=== PATIENT | female | born 1990 | race African-American/Black ===

== ENCOUNTER 2024-01-30 07:39 | Emergency (ER) | payer MEDICAID, OTHER ==
[~2024-01-30] VITALS: Ht 170.2 cm; Wt 118.2 kg
[2024-01-30] MEDS: ONDANSETRON HCL 4 MG/2 ML VIAL IV ONE (08:21)
[2024-01-30] MEDS: SODIUM CHLORIDE 0.9% 500 ML IVB ONE (08:21)
[2024-01-30] MEDS: MORPHINE SULFATE 4 MG/ML SYR/VIAL IV ONE (08:21)
[2024-01-30 08:49] LABS: Basophils # (auto) 0 10 ^3/uL (0-0.2); Basophils % (auto) 0.7 % (0.0-2.0); Eosinophils # (auto) 0.1 10 ^3/uL (0-0.8); Hematocrit 38.8 % (36.0-46.0); Hemoglobin 13.1 g/dL (12.2-16.2); Lymphocytes # (auto) 1.2 10 ^3/uL (0.4-5.4); Lymphocytes % (auto) 19.4 % (10.0-50.0); Mean Corpuscular Hemoglobin 29.5 pg (28.0-32.0); Mean Corpuscular Hgb Conc. 33.8 g/dL (32.0-36.0); Mean Corpuscular Volume 87.4 fL (80.0-100.0); Monocytes # (auto) 0.4 10 ^3/uL (0-1.3); Monocytes % (auto) 6.3 % (0.0-12.0); Neutrophils # (auto) 4.4 10 ^3/uL (1.6-8.6); Neutrophils % (auto) 72.6 % (37.0-80.0); Nucleated Red Blood Cells % 0.2 %; Platelet Count (auto) 220 10^3/uL (140-450); Red Blood Cells 4.44 10^6/uL (4.0-5.20); Red Cell Distribution Width 13.3 % (11.8-14.3)
[2024-01-30 08:56] LABS: Potassium 4.1 mmol/L (3.5-5.1); Sodium 143 mmol/L (136-145)
[2024-01-30 08:57] LABS: Anion Gap 9 (5-15); Calcium 9.5 mg/dL (8.7-10.4); Carbon Dioxide 23 mmol/L (20-31)
[2024-01-30 09:02] LABS: BUN/Creatinine Ratio 12.5 (10.0-20.0); Blood Urea Nitrogen 12 mg/dL (9-23); Lipase 32 U/L (12-53)
[2024-01-30 09:03] LABS: Chloride 111 mmol/L (98-107); Glucose 108 mg/dL (74-106); Magnesium 1.9 mg/dL (1.6-2.6)
[2024-01-30 09:07] LABS: Urine Bacteria None Seen /hpf (None Seen)
[2024-01-30 09:17] LABS: Urine Blood 3+ /uL (Negative); Urine Clarity Clear (Clear); Urine Color Light-Yellow (Yellow); Urine Protein, UAD Negative (Negative); Urine Specific Gravity 1.024 (1.001-1.035); Urine Urobilinogen Normal (Negative); Urine WBC 2 /hpf (0 - 5); Urine pH 6.5 (5.0-9.0)
--- NOTE | 2024-01-30 09:38 | ED.PDOC ---
History of Present Illness HPI Comments 33 y/o F, with a Hx of seizures, morbid obesity, , and marijuana use, presents with c/o non-radiating, left-lower pelvic pain and abnormal vaginal bleeding w/clot production, today. Patient endorses on having symptoms since the beginning of December 2023 following recent Depo-Provera control use cessation in the end of November 2023, due to adverse side-effects. She reports no additional relevant or pertinent Hx along with any recent stressors, strenuous activities, sick contact, travel, spoiled food, substance use/exposure, or sexual activities. Patient denies having any urinary symptoms, weakness, lightheadedness, nausea, vomiting, or other associated symptoms or modifiers at this time. 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 Family History Family History: Unknown Social History Smoker: Non-Smoker Alcohol: Denies ETOH Use Drugs: Marijuana Lives In: Home Genitourinary: reports: abnormal vagina bleeding, pain (left pelvic pain) All Other Systems: Reviewed and Negative (negative unless otherwise stated above or in HPI) Physical Exam General Appearance: Mild Distress, Moderate Distress HEENT: Normal ENT Inspection, PERRL/EOMI Neck: Full Range of Motion, Non-Tender, Normal, Normal Inspection Respiratory: Chest Non-Tender, Lungs Clear, No Accessory Muscle Use, No Respiratory Distress, Normal Breath Sounds Cardiovascular: No Edema, No JVD, No Murmur, No Gallop, Normal Peripheral Pulses, Regular Rate/Rhythm Breast Exam: Deferred Gastrointestinal: No Organomegaly, No Pulsatile Mass, Normal Bowel Sounds, Soft, Suprapubic, Tenderness Genitalia: Deferred Pelvic: Deferred, Vaginal Bleeding Rectal: Deferred Extremities: No calf tenderness, Normal capillary refill, Normal inspection, Normal range of motion, Non-tender, No pedal edema Neurologic: Alert, seed expert II-XII nml as Tested, No Motor Deficits, Normal Affect, Normal Mood, No Sensory Deficits Cerebellar Function: Normal Reflexes: Normal Skin: Dry, Normal Color, Warm Peripheral Pulses: 1+ carotid (R), 1+ carotid (L) Lymphatic: No Adenopathy Was a procedure done? Was a procedure done?: No Differential Dx Considerations may include: menstruation, menorrhagia, menometrorrhagia, dysmenorrhea, anemia, dehydration X-Ray, Labs, Meds, VS Vital Signs Date Time Temp Pulse Resp B/P (MAP) Pulse Ox O2 Delivery O2 Flow Rate FiO2 01/30/24 10:08 98.0 72 16 140/90 (107) 98 98.0 01/30/24 09:00 72 16 140/90 01/30/24 08:21 87 20 131/92 01/30/24 08:21 Room Air* 0 21 01/30/24 08:20 84 20 131/92 (105) 98 01/30/24 07:56 98.2 97 18 140/94 (109) 99 Lab Test 01/30/24 08:27 01/30/24 07:49 Range/Units White Blood Count 6.0 4.4-10.8 10^3/uL Red Blood Count 4.44 4.0-5.20 10^6/uL Hemoglobin 13.1 12.2-16.2 g/dL Hematocrit 38.8 36.0-46.0 % Mean Corpuscular Volume 87.4 80.0-100.0 fL Mean Corpuscular Hemoglobin 29.5 28.0-32.0 pg Mean Corpuscular Hemoglobin Concent 33.8 32.0-36.0 g/dL Red Cell Distribution Width 13.3 11.8-14.3 % Platelet Count 220 140-450 10^3/uL Mean Platelet Volume 7.7 6.9-10.8 fL Neutrophils (%) (Auto) 72.6 37.0-80.0 % Lymphocytes (%) (Auto) 19.4 10.0-50.0 % Monocytes (%) (Auto) 6.3 0.0-12.0 % Eosinophils (%) (Auto) 1.0 0.0-7.0 % Basophils (%) (Auto) 0.7 0.0-2.0 % Neutrophils # (Auto) 4.4 1.6-8.6 10 ^3/uL Lymphocytes # (Auto) 1.2 0.4-5.4 10 ^3/uL Monocytes # (Auto) 0.4 0-1.3 10 ^3/uL Eosinophils # (Auto) 0.1 0-0.8 10 ^3/uL Basophils # (Auto) 0 0-0.2 10 ^3/uL Nucleated Red Blood Cells 0.2 % Sodium Level 143 136-145 mmol/L Potassium Level 4.1 3.5-5.1 mmol/L Chloride Level 111 H 98-107 mmol/L Carbon Dioxide Level 23 20-31 mmol/L Anion Gap 9 5-15 Blood Urea Nitrogen 12 9-23 mg/dL Creatinine 0.96 0.550-1.02 mg/dL Glomerular Filtration Rate Calc 81 >90 mL/min BUN/Creatinine Ratio 12.5 10.0-20.0 Serum Glucose 108 H 74-106 mg/dL Calcium Level 9.5 8.7-10.4 mg/dL Magnesium Level 1.9 1.6-2.6 mg/dL Lipase 32 12-53 U/L Beta HCG, Quantitative 1.8 1.5-4.2 mIU/mL Urine Color Light-yellow Yellow Urine Clarity Clear Clear Urine pH 6.5 5.0-9.0 Urine Specific [place] 1.024 1.001-1.035 Urine Protein Negative Negative Urine Ketones Negative Negative Urine Blood 3+ H Negative /uL Urine Nitrite Negative Negative Urine Bilirubin Negative Negative Urine Urobilinogen Normal Negative mg/dL Urine Leukocyte Esterase Negative Negative /uL Urine RBC 438 0 - 4 /hpf Urine WBC 2 0 - 5 /hpf Urine Squamous Epithelial Cells Few <5 /hpf Urine Bacteria None seen None Seen /hpf Urine Glucose Normal Normal mg/dL Current Medications Medications (Trade) Dose Ordered Sig/Sherrill Route Start Time Stop Time Status Last Admin Morphine Sulfate 2 mg ONCE ONCE IV 01/30/24 08:15 01/30/24 08:16 DC 01/30/24 08:21 Sodium Chloride 500 ml @ 500 mls/hr Q1H ONCE IVB 01/30/24 08:15 01/30/24 09:14 DC 01/30/24 08:21 Ondansetron HCl (Zofran) 4 mg ONCE ONCE IV 01/30/24 08:15 01/30/24 08:16 DC 01/30/24 08:21 X-Ray, Labs, Meds, VS Comment Course in the emergency department eventful patient came in complaining of low abdominal pain vaginal bleeding since she has stopped the Depo-Provera Ultrasound will pelvis is normal CBC negative Urine shows 3+ blood Lipase 32 Magnesium 1.9 CMP negative Patient will be discharged home to follow up with unemployment insurance director Treatment with Provera 10 mg a one time before seeing unemployment insurance director Time of 1ST Reevaluation: 09:05 Reevaluation 1ST: Unchanged Patient Education/Counseling: Diagnosis, Treatment, Prognosis Family Education/Counseling: Diagnosis, Treatment, Prognosis, No Family Present Additional Information - The following tests were ordered, and results were reviewed by me: BMP, Mg2+, Pelvic US, urine analysis, lipase, Beta-Quant, CBC - I reviewed and agreed with the following test results read by other provider: Pelvic US Departure 1 Departure Time of Disposition: 11:48 Impression: Primary Impression: Abnormal uterine bleeding Additional Impression: Breakthrough bleeding on depo provera Ruled Out: Anemia, Disposition: 01 HOME / SELF CARE / HOMELESS Condition: Fair Additional Instructions: You need to push fluids and follow up with your unemployment insurance director If the bleeding continued few days need to come back for further care Discharged With: Self Critical Care Note Critical Care Time?: No Stability Stability form required: No Heart Score Heart Score: Heart Score Response (Comments) Value History N/A 0 EKG N/A 0 Age <45 0 Risk Factors No known risk factors 0 Troponin N/A 0 Total 0 I personally scribed for RAJAN CAMPOS MD ([email or web address]) on 01/30/24 at 09:38. Electronically submitted by Byron Spence ([email or web address]). RAJAN CAMPOS MD Jan 30, 2024 09:38
--- NOTE | 2024-01-30 10:22 | DVH ---
INDICATION: Heavy vaginal bleeding and cramping TECHNIQUE: Multiple real-time grayscale transabdominal and transvaginal sonographic images along with color and duplex Doppler of the uterus and ovaries were obtained. COMPARISON: None FINDINGS: The uterus measures 9.2 x 4.5 x 4.1 cm. The endometrial stripe measures 0.5 cm. There is a nabothian cysts in the cervix measuring 0.7 cm. The right ovary measures 2.5 x 2.0 x 1.9 cm. The left ovary is obscured due to overlying bowel gas. Subsequent color and duplex Doppler interrogation of the ovaries demonstrated symmetric vascular flow to both ovaries, though this does not exclude the possibility of torsion due to the dual blood suppl y. IMPRESSION: 1. Grossly unremarkable pelvic ultrasound.
[2024-01-30 12:01] VITALS: BP 141/87; PULSE 72; RESP 16; TEMP 98.7; O2SAT 97
[2024-01-30] MEDS: medroxyPROGESTERone ACETATE 5 MG TAB PO ONE (12:06)
[2024-01-30] MEDS ORDERED: MEDR5TAB28 PO (12:12)
== END 2024-01-30 12:19 | disposition home or self-care (01) ==
LOC: ER 07:39
DX: N93.9 Abnormal uterine and vaginal bleeding, unspecified (principal); R10.2 Pelvic and perineal pain; F12.10 Cannabis abuse, uncomplicated; E66.01 Morbid (severe) obesity due to excess calories; Z79.3 Long term (current) use of hormonal contraceptives; Z88.2 Allergy status to sulfonamides; Z68.41 Body mass index [BMI] 40.0-44.9, adult; Z79.899 Other long term (current) drug therapy
CPT/HCPCS: 36415; 76856; 80048; 81001; 83690; 83735; 84702; 85025; 96361; 96374; 96375; 99285; J2270; J2405; J7040; 76817

== ENCOUNTER 2024-05-12 12:48 | Emergency (ER) | payer MEDICAID ==
[~2024-05-12] VITALS: Ht 167.6 cm; Wt 116.7 kg
[~2024-05-12 12:48] MED LIST: MEDR5TAB28 PO
[2024-05-12 13:38] VITALS: BP 123/92; PULSE 94; RESP 16; TEMP 98; O2SAT 97
[2024-05-12 14:54] LABS: Urine Bacteria None Seen /hpf (None Seen)
[2024-05-12 15:14] LABS: Urine Blood Negative /uL (Negative); Urine Clarity Clear (Clear); Urine Color Light-Yellow (Yellow); Urine Mucus FEW (None Seen); Urine Protein, UAD Negative (Negative); Urine Specific Gravity 1.026 (1.001-1.035); Urine Squamous Epithelial Cell FEW /hpf (<5); Urine Urobilinogen Normal (Negative); Urine WBC < 1 /HPF (0-5)
== END 2024-05-12 15:33 | disposition left against medical advice (07) ==
LOC: ER 12:48
DX: R68.89 Other general symptoms and signs (principal); Z53.21 Procedure and treatment not carried out due to patient leaving prior to being seen by health care provider
CPT/HCPCS: 81001

== ENCOUNTER 2024-09-27 20:10 | Inpatient (IN) | payer MEDICAID ==
[~2024-09-27] VITALS: Ht 167.6 cm; Wt 121.9 kg
[2024-09-27] MEDS ORDERED: LORazepam 2MG/ML-1ML VIAL ONE (20:12)
[2024-09-27] MEDS ORDERED: levETIRAcetam 1000 mg/100ml 100 ML IV ONE (20:16)
[2024-09-27] MEDS: LORazepam 2MG/ML-1ML VIAL IV ONE (20:20)
[2024-09-27] MEDS: levETIRAcetam 1000 mg/100ml 100 ML IV ONE (20:42)
[2024-09-27] MEDS: SODIUM CHLORIDE 0.9% 1,000 ML IV ONE (20:42)
[2024-09-27 20:44] LABS: Hematocrit 36.9 % (36.0-46.0); Hemoglobin 12.3 g/dL (12.2-16.2); Mean Corpuscular Hemoglobin 28.9 pg (28.0-32.0); Mean Corpuscular Volume 86.8 fL (80.0-100.0); Nucleated Red Blood Cells % 0.1 %
[2024-09-27 20:45] VITALS: PULSE 84; RESP 17; O2SAT 99
--- NOTE | 2024-09-27 21:01 | ED.PDOC ---
HPI (NEURO) HPI Comments 34-year-old female who came to ER for seizures. Patient brought to ER by family member, who had a witnessed seizure. Upon arrival of the ER, patient had another seizure episode with nausea and vomiting. Patient currently postictal at this time care. REVIEW OF SYSTEMS: No fever, no chills, or fatigue HEENT: No sore throat, no earache, no congestion, no neck pain. Cardiac: No chest pain. No palpitations. Lungs: No shortness of breath, no cough. GI: No nausea, no vomiting, no diarrhea, no constipation, no abdominal pain : No dysuria, frequency, or urgency. No hematuria. Musculoskeletal: No joint pain , no joint swelling, no extremity edema. Skin: No rash, no itching. Neuro: No headache, no dizziness, no weakness, (+) seizure Physical exam General: Awake, alert and oriented. No acute distress. Skin: Skin in warm, dry and intact. Appropriate color for ethnicity. Nailbeds pink with no cyanosis. HEENT: The head is normocephalic and atraumatic. Conjunctivae are clear without exudates or hemorrhage. Sclera is non-icteric. EOM are intact. No signs of nystagmus. Eyelids are normal in appearance without swelling or lesions. Oral mucosa is pink and moist Neck: The neck is supple with normal range of motion. No JVD. Cardiac: Heart rate and rhythm are normal. No murmurs, gallops, or rubs are auscultated. Respiratory: No signs of respiratory distress. Lung sounds are clear in all lobes bilaterally without rales, rhonchi, or wheezes. Abdominal: Abdomen is soft, non-tender without distention. Bowel sounds are present and normoactive in all four quadrants. Extremities: Upper and lower extremities are atraumatic in appearance without deformity or edema. Neurological: The patient is awake, alert and oriented to person, place, and time with normal speech. Speech is clear. There is no facial asymmetry. Active seizure witnessed patient with generalized tonic-clonic seizure-like activity. Psychiatric: Appropriate mood and affect. Good judgement and insight. No visual or auditory hallucinations. Chief Complaint: Seizure Time Seen by MD: 20:59 Primary Care Provider: [facility] Reviewed Notes: Nurses Notes Information Source: Patient, Relative Mode of Arrival: Wheelchair Severity: Moderate Dizziness/Weakness Severity: Unable to do activities Headache Severity: Moderate Timing: Minutes Duration: Minutes Seizure Quality: Tonic-clonic Headache Quality: Throbbing, Aching Headache Location: Generalized Weakness Location: Generalized Numbness Location: Generalized Seizure Location: Generalized Onset: With light exertion Circumstances: Spontaneous Before: Normal During: LOC After: Confusion, Headache History of: Seizure Disorder Past Medical History PAST MEDICAL HISTORY: Seizures 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 Was a procedure done?: No Differential Diagnosis (SZ) Seizure: Psychogenic Seizure, Hypoglycemia, Idiopathic, Mass Lesion, Epilepsy-Break Through, Epilepsy-Status, Other X-Ray, Labs, Meds, VS Vital Signs Date Time Temp Pulse Resp B/P (MAP) Pulse Ox O2 Delivery O2 Flow Rate FiO2 09/27/24 23:00 84 18 128/68 (88) 98 09/27/24 22:00 84 17 124/75 (91) 98 09/27/24 21:00 80 16 128/78 (95) 97 09/27/24 20:45 84 17 99 Room Air* 0 21 09/27/24 20:34 97.1 107 16 133/100 98 97.1 09/27/24 20:11 98.1 83 17 124/76 (92) 97 98.1 Lab Test 09/27/24 20:32 09/27/24 20:31 Range/Units POC Glucose 106 70-106 mg/dl White Blood Count 7.2 4.4-10.8 10^3/uL Red Blood Count 4.25 4.0-5.20 10^6/uL Hemoglobin 12.3 12.2-16.2 g/dL Hematocrit 36.9 36.0-46.0 % Mean Corpuscular Volume 86.8 80.0-100.0 fL Mean Corpuscular Hemoglobin 28.9 28.0-32.0 pg Mean Corpuscular Hemoglobin Concent 33.3 32.0-36.0 g/dL Red Cell Distribution Width 13.0 11.8-14.3 % Platelet Count 219 140-450 10^3/uL Mean Platelet Volume 7.8 6.9-10.8 fL Neutrophils (%) (Auto) 67.7 37.0-80.0 % Lymphocytes (%) (Auto) 25.4 10.0-50.0 % Monocytes (%) (Auto) 5.5 0.0-12.0 % Eosinophils (%) (Auto) 0.8 0.0-7.0 % Basophils (%) (Auto) 0.6 0.0-2.0 % Neutrophils # (Auto) 4.9 1.6-8.6 10 ^3/uL Lymphocytes # (Auto) 1.8 0.4-5.4 10 ^3/uL Monocytes # (Auto) 0.4 0-1.3 10 ^3/uL Eosinophils # (Auto) 0.1 0-0.8 10 ^3/uL Basophils # (Auto) 0 0-0.2 10 ^3/uL Nucleated Red Blood Cells 0.1 % Prothrombin Time 10.3 9.3-11.8 sec Prothrombin Time INR 0.97 0.9-1.15 Sodium Level 142 136-145 mmol/L Potassium Level 3.8 3.5-5.1 mmol/L Chloride Level 108 H 98-107 mmol/L Carbon Dioxide Level 26 20-31 mmol/L Anion Gap 8 5-15 Blood Urea Nitrogen 13 9-23 mg/dL Creatinine 1.08 H 0.550-1.02 mg/dL Glomerular Filtration Rate Calc 70 >90 mL/min BUN/Creatinine Ratio 12.0 10.0-20.0 Serum Glucose 91 74-106 mg/dL Calcium Level 8.8 8.7-10.4 mg/dL Magnesium Level 1.8 1.6-2.6 mg/dL Total Bilirubin 0.3 0.2-1.0 mg/dL Aspartate Amino Transferase (AST) 15 13-40 U/L Alanine Aminotransferase (ALT) 11 7-40 U/L Alkaline Phosphatase 75 46-116 U/L Total Protein 6.4 5.7-8.2 g/dL Albumin 4.0 3.2-4.8 g/dL Thyroid Stimulating Hormone (TSH) 1.24 0.55-4.78 uIU/mL Beta HCG, Quantitative 0.6 L 1.5-4.2 mIU/mL Levetiracetam Level Pending Plasma/Serum Blood Alcohol < 3.0 <10 mg/dL Time of 1ST Reevaluation: 20:57 Reevaluation 1ST: Unchanged Patient Education/Counseling: Need For Follow Up Family Education/Counseling: Need For Follow Up Departure 1 Departure Time of Disposition: 00:35 Impression: Primary Impression: Uncontrolled seizures Disposition: ADMITTED INPATIENT Condition: Fair Comments MDM: 34-year-old female presents to the emergency department with seizure activity. Initial evaluation included thorough history, physical examination and appropriate diagnostic testing. Based on the clinical presentation and diagnostic findings, the patient appears to have uncontrolled seizure disorder Patient was treated with IV fluids, Keppra and Ativan in the ED. she was placed on seizure precautions. Given the complexity of the case and need for further management patient is being admitted to the hospitalist service for further monitoring, treatment and evaluation. Risks, benefits and alternatives of admission and proposed interventions were discussed with the patient. Patient is in agreement with the plan. Extensive evaluation was performed in attempt to identify or rule out: (See differential diagnosis section) The following tests were ordered, and results were reviewed by me and discussed with patient: (See diagnostic results section) The following test were independently interpreted by me: N/A I reviewed and agreed with the following test results read by other providers: N/A I reviewed the following notes from the pt's past medical encounters: N/A Additional information was gathered from interviewing the following independent historians: EMS personnel, patient's at bedside Discussion of management or test interpretation with external physician/other qualified health healthcare administrator: Addressed an acute or chronic illness that poses a threat to life or bodily function: Uncontrolled seizure disorder Decision regarding hospitalization or escalation of hospital level of care: Risk and benefits of admission for further treatment of patient's condition was considered. Due to patient's current clinical condition, high risk of decline and poor outcome if discharged and need for further inpatient management and monitoring, patient will be admitted to the hospital. Discussed with patient. Drug therapy requiring intensive monitoring for toxicity: IV Keppra Parenteral controlled substances: IV lorazepam Decision regarding elective major surgery with identified patient or procedure risk factors: N/A Decision regarding emergency major surgery: N/A Decision not to resuscitate or to de-escalate care because of poor prognosis: N/A Diagnosis or treatment significantly limited by social determinants of health: N/A Critical Care Note Critical Care Time?: No Stability Stability form required: No Heart Score Heart Score: Heart Score Response (Comments) Value History N/A 0 EKG N/A 0 Age N/A 0 Risk Factors N/A 0 Troponin N/A 0 Total 0 I personally scribed for LINDSEY KELLEY MD ([email or web address]) on 09/27/24 at 21:00. Electronically submitted by Thomas Knight ([facility]). LINDSEY KELLEY MD Sep 27, 2024 21:00
[2024-09-27 21:06] LABS: Alanine Aminotransferase 11 U/L (7-40); Albumin 4.0 g/dL (3.2-4.8); Alkaline Phosphatase 75 U/L (46-116); Anion Gap 8 (5-15); BUN/Creatinine Ratio 12.0 (10.0-20.0); Blood Urea Nitrogen 13 mg/dL (9-23); Calcium 8.8 mg/dL (8.7-10.4); Carbon Dioxide 26 mmol/L (20-31); Glucose 91 mg/dL (74-106); Potassium 3.8 mmol/L (3.5-5.1); Sodium 142 mmol/L (136-145); Total Protein 6.4 g/dL (5.7-8.2)
[2024-09-27 21:07] LABS: Bilirubin, Total 0.3 mg/dL (0.2-1.0); Chloride 108 mmol/L (98-107)
--- NOTE | 2024-09-28 00:09 | DVHHPRES ---
History of Present Illness Resident Creating Document: LAURO CHOI RESDIENT History of Present Illness This is a 34-year-old female with past medical history of seizure, came to the hospital due to loss of consciousness. Per patient, she has seizure since childhood, previously was using levetiracetam, since 1 year has been on Lacosamide, but since 1 month has run out of medicine and had not been able to follow up with neurologist/refill medicine. Today, patient was feeling sick, had shortness of breaths, nausea and upon standing up lost consciousness. Upon hospital arrival, while she was coming out of car, lost consciousness and the next thing she remember is that she was lying on the bed. Per ER note the last episode was a witness seizure. She also reports of blurry vision, headache and loss of urine. She denies chest pain, fever, any recent bladder/bowel habit changes, or tongue biting. She reports that recently has been under high stress and could not sleep properly. PMHx: Seizure since childhood, previous seizure episode was 2 months back PSHx: Ectopic Family history: Has family history of seizure Social history: Smokes marijuana, denies any other drug use Home medication: Lacosamide 100 mg daily, but has ran out of medicine since 1 month Allergic history: Sulfa antibiotics Patient seen and examined at the bedside. Patient is currently alert oriented. Complained of bilateral lower limb pain. Review of Systems Allergies: Coded Allergies: Sulfa Antibiotics (Verified Allergy, Unknown, 01/30/24) Medications Current Medications Medications Dose Ordered Sig/Sherrill Route Start Time Stop Time Status Last Admin Dose Admin Levetiracetam 1,000 mg DAILY PO 09/29/24 18:00 UNV Lorazepam 1 mg Q5MINP PRN IV 09/28/24 00:15 UNV Exam Vital Signs Vital Signs Date Time Temp Pulse Resp B/P (MAP) Pulse Ox O2 Delivery O2 Flow Rate FiO2 09/27/24 23:00 84 18 128/68 (88) 98 09/27/24 20:45 Room Air* 0 21 09/27/24 20:34 97.1 97.1 Exam General Appearance: Alert, Oriented X3, Cooperative, No acute distress HEENT: Atraumatic, PERRLA, EOMI, Mucous membrane moist/pink Respiratory: Clear to auscultation, Normal air movement Cardiovascular: Regular rate, Normal S1, Normal S2, No murmurs, no chest wall tenderness Abdominal: Normal bowel sounds, Soft, No tenderness, No hepatospenomegaly, No masses Extremities: No clubbing, No cyanosis, No edema, Normal pulses, No tenderness/swelling Skin: No rashes, No breakdown, No significant lesion Neuro: Normal gait, Normal speech, Strength at 5/5 X4 ext, Normal tone, Sensation intact, Cranial nerves 3-12 NL, Reflexes 2+ Psych/Mental Status: Mental status NL, Mood was sad and patient was crying during history taking Labs/Xrays Labs Test 09/27/24 20:32 09/27/24 20:31 Range/Units POC Glucose 106 70-106 mg/dl White Blood Count 7.2 4.4-10.8 10^3/uL Red Blood Count 4.25 4.0-5.20 10^6/uL Hemoglobin 12.3 12.2-16.2 g/dL Hematocrit 36.9 36.0-46.0 % Mean Corpuscular Volume 86.8 80.0-100.0 fL Mean Corpuscular Hemoglobin 28.9 28.0-32.0 pg Mean Corpuscular Hemoglobin Concent 33.3 32.0-36.0 g/dL Red Cell Distribution Width 13.0 11.8-14.3 % Platelet Count 219 140-450 10^3/uL Mean Platelet Volume 7.8 6.9-10.8 fL Neutrophils (%) (Auto) 67.7 37.0-80.0 % Lymphocytes (%) (Auto) 25.4 10.0-50.0 % Monocytes (%) (Auto) 5.5 0.0-12.0 % Eosinophils (%) (Auto) 0.8 0.0-7.0 % Basophils (%) (Auto) 0.6 0.0-2.0 % Neutrophils # (Auto) 4.9 1.6-8.6 10 ^3/uL Lymphocytes # (Auto) 1.8 0.4-5.4 10 ^3/uL Monocytes # (Auto) 0.4 0-1.3 10 ^3/uL Eosinophils # (Auto) 0.1 0-0.8 10 ^3/uL Basophils # (Auto) 0 0-0.2 10 ^3/uL Nucleated Red Blood Cells 0.1 % Sodium Level 142 136-145 mmol/L Potassium Level 3.8 3.5-5.1 mmol/L Chloride Level 108 H 98-107 mmol/L Carbon Dioxide Level 26 20-31 mmol/L Anion Gap 8 5-15 Blood Urea Nitrogen 13 9-23 mg/dL Creatinine 1.08 H 0.550-1.02 mg/dL Glomerular Filtration Rate Calc 70 >90 mL/min BUN/Creatinine Ratio 12.0 10.0-20.0 Serum Glucose 91 74-106 mg/dL Calcium Level 8.8 8.7-10.4 mg/dL Total Bilirubin 0.3 0.2-1.0 mg/dL Aspartate Amino Transferase (AST) 15 13-40 U/L Alanine Aminotransferase (ALT) 11 7-40 U/L Alkaline Phosphatase 75 46-116 U/L Total Protein 6.4 5.7-8.2 g/dL Albumin 4.0 3.2-4.8 g/dL SEPSIS Sepsis Screen Date sepsis recognized/suspect: Sep 27, 2024 Time Sepsis recognized/suspect: 2217 Recent Procedure: No On Antibiotic Therapy: No Respiratory Rate >20: No Heart Rate >90: No Temp<36 C (96.8 F) or >38.3 C: No SBP <90 or MAP <65 mmHG: No New Acute Mental Status Change: No Is the patient on CPAP, BIPAP,: No Physician Orders Drug Screen (09/27/24 20:18) Urinalysis (09/27/24 20:18) Levetiracetam (Keppra) (09/27/24 20:18) Seizure Precautions (09/27/24 ) Titrate Oxygen (09/27/24 20:18) Oxygen (09/27/24 ) Continous Pulse Oximetry (09/27/24 20:18) Saline Lock (09/27/24 20:18) Longshore Equipment Operator (09/27/24 ) Admit (09/27/24 23:52) Code Status (09/27/24 23:52) Vital Signs .PER UNIT PROTOCOL (09/27/24 23:52) Review Orders With Adm.Md (09/27/24 23:52) Notify Md Of Changes From Base (09/27/24 23:52) Advance Directive (09/27/24 23:52) Patient Condition (09/27/24 23:52) Allergies (09/27/24 23:52) Stat Ekg For Chest Pain (09/27/24 23:52) Notify Md Of Changes From Base (09/27/24 23:52) Willow Machine Operator For 24 Hours (09/27/24 23:52) Emergency Dysrhythmia Protocol (09/27/24 23:52) Rhythm Strips Once Every Shift (09/27/24 23:52) Thyroid Stimulating Hormone (09/27/24 23:52) Magnesium (09/27/24 23:52) Complete Blood Count (09/28/24 04:00) Comprehensive Metabolic Panel (09/28/24 04:00) * Neurology Consult (09/27/24 23:59) Chest Xray 1 View (09/27/24 23:59) Blood Alcohol (09/27/24 23:59) Electrocardigram (09/27/24 23:59) Beta Hcg, Quantitative (09/27/24 23:59) Levetiracetam Tablet (Keppra Tablet) (09/29/24 18:00) Lorazepam 2mg/Ml Inj (Ativan Inj) (09/28/24 00:15) Seizure Precautions (09/28/24 ) Fall Risk Precautions In Place QSHIFT (09/28/24 00:04) Prothrombin Time W/ Inr (09/28/24 00:07) Communication Order (09/28/24 00:07) Urinalysis (09/28/24 00:07) Vital Signs Date Time Temp Pulse Resp B/P (MAP) Pulse Ox O2 Delivery O2 Flow Rate FiO2 09/27/24 23:00 84 18 128/68 (88) 98 09/27/24 22:00 84 17 124/75 (91) 98 09/27/24 21:00 80 16 128/78 (95) 97 09/27/24 20:45 84 17 99 Room Air* 0 21 09/27/24 20:34 97.1 107 16 133/100 98 97.1 09/27/24 20:11 98.1 83 17 124/76 (92) 97 98.1 Laboratory Tests Test 09/27/24 20:31 White Blood Count 7.2 10^3/uL (4.4-10.8) Medications Medications Dose Ordered Sig/Sherrill Route Start Time Stop Time Status Last Admin Dose Admin Levetiracetam 100 ml @ 400 mls/hr ONCE ONCE IV 09/27/24 20:30 09/27/24 20:44 DC 09/27/24 20:42 400 MLS/HR Lorazepam 1 mg ONCE ONCE IV 09/27/24 20:15 09/27/24 20:53 DC 09/27/24 20:20 1 MG Sodium Chloride 1,000 ml @ 1,000 mls/hr Q1H ONCE IV 09/27/24 20:30 09/27/24 21:29 DC 09/27/24 20:42 1,000 MLS/HR Assessment/Plan Assessment/Plan Breakthrough seizure, likely due to medication nonadherence Medication nonadherence Obesity Current marijuana user Plan/recommendation * Levetiracetam * Ativan p.r.n. * Zofran * Pain management * Check head CT scan * Consulted neurology DIET: Regular DVT PROPHYLAXIS: Lovenox CODE STATUS: Goal of care discussed for more than 18 minutes, full code DISPOSITION: Telemetry Patient's status and plan discussed with the patient. Case discussed with Dr. Kimbrough. Plan discussed with: Patient, Other (Boyfriend and RN) My Orders Orders - LAURO CHOI RESDITONIA Procedure Category Date Status Time Admit ADMIT 09/27/24 Transmitted 23:52 Code Status CODE 09/27/24 Transmitted 23:52 Vital Signs [facility] 09/27/24 In Process 23:52 Review Orders With [facility] 09/27/24 In Process Adm. 23:52 Notify Of Changes [facility] 09/27/24 In Process From Base 23:52 Advance Directive [facility] 09/27/24 In Process 23:52 Patient Condition ORDERS 09/27/24 Transmitted 23:52 Allergies [facility] 09/27/24 In Process 23:52 Stat Ekg For Chest [facility] 09/27/24 In Process Pain 23:52 Notify Of Changes [facility] 09/27/24 In Process From Base 23:52 Willow Machine Operator For [facility] 09/27/24 In Process 24 Hours 23:52 Emergency Dysrhythmia [facility] 09/27/24 In Process Protocol 23:52 Rhythm Strips Once [facility] 09/27/24 In Process Every Shift 23:52 Thyroid Stimulating LAB 09/27/24 In Process Hormone 23:52 Magnesium LAB 09/27/24 In Process 23:52 Complete Blood Count LAB 09/28/24 Logged 04:00 Comprehensive LAB 09/28/24 Logged Metabolic Panel 04:00 * Neurology Consult CONS 09/27/24 Transmitted 23:59 Chest Xray 1 View XY 09/27/24 Logged 23:59 Blood Alcohol LAB 09/27/24 In Process 23:59 Electrocardigram EKG 09/27/24 Logged 23:59 Beta Hcg, Quantitative LAB 09/27/24 In Process 23:59 Levetiracetam Tablet PHA 09/29/24 Logged (Keppra Tablet) 18:00 Lorazepam 2mg/Ml Inj PHA 09/28/24 Logged (Ativan Inj) 00:15 Seizure Precautions ED NURSING 09/28/24 Transmitted Fall Risk Precautions [facility] 09/28/[address] 00:04 Prothrombin Time W/ LAB 09/28/24 Logged INR 00:07 Communication Order ORDERS 09/28/24 Verified 00:07 Urinalysis LAB 09/28/24 Verified 00:07 Date of Service: Sep 27, 2024 Billing Provider: KVNG KIMBROUGH MD Common Visit Codes: [id number] INP/OBS CARE (HIGH) LAURO CHOI RESDIENT Sep 28, 2024 00:09 KVNG KIMBROUGH MD Sep 30, 2024 07:52
[2024-09-28] MEDS ORDERED: ONDANSETRON HCL 4 MG/2 ML VIAL IV PRN (00:15)
[2024-09-28] MEDS ORDERED: LORazepam 2MG/ML-1ML VIAL IV PRN (00:15)
[2024-09-28 00:29] LABS: INR 0.97 (0.9-1.15); Prothrombin Time 10.3 sec (9.3-11.8)
[2024-09-28] MEDS: MAGNESIUM SULFATE 1GM/100ML 100 ML IV ONE (01:15)
--- NOTE | 2024-09-28 01:20 | DVH ---
CHEST RADIOGRAPH Indication: Pneumonia Technique: Single frontal view of the chest was obtained COMPARISON: None FINDINGS: Lines and Tubes: None Lungs: Clear Pleura: No effusion. No pneumothorax. Cardiomediastinal contours: Unremarkable Bones: Unremarkable IMPRESSION: 1. No acute disease.
[2024-09-28 01:25] LABS: Urine Protein, UAD Negative (Negative)
[2024-09-28 01:36] LABS: Cannabinoid Screen, Urine Pos (NEGATIVE)
[2024-09-28 02:02] LABS: Amphetamine Screen, Urine Neg (NEGATIVE); Barbiturate Scree,Urine Neg (NEGATIVE); Benzodiazephine Screen, Urine Neg (NEGATIVE); Cocaine Screen, Urine Neg (NEGATIVE); Opiate Scree,Urine Neg (NEGATIVE); Phencyclidine Screen, Urine Neg (NEGATIVE)
[2024-09-28 02:16] LABS: Hematocrit 34.3 % (36.0-46.0); Hemoglobin 11.6 g/dL (12.2-16.2); Mean Corpuscular Hemoglobin 29.3 pg (28.0-32.0); Mean Corpuscular Volume 86.8 fL (80.0-100.0); Nucleated Red Blood Cells % 0.1 %
--- NOTE | 2024-09-28 02:21 | DVH ---
EXAM: CT HEAD WITHOUT CONTRAST INDICATION: ALOC TECHNIQUE: CT of the head without intravenous contrast. Radiation Dose : 1. Head: CT Dose: CTDI volume is 62.14 mGy. Dose-length product is 1224.51 mGy*cm The dose indicators for CT are the volume Computed Tomography (CT) Dose Index (CTDIvol) and the Dose Length Product (DLP), and are measured in units of mGy and mGy-cm, respectively. These indicators are not patient dose, but values generated from the CT scanner acquisition factors. The report includes radiation exposure data for exposures received during this examination. COMPARISON: None FINDINGS: There is no evidence of acute intracranial hemorrhage, extra-axial collection, mass effect, midline s hift, herniation or hydrocephalus. The ventricles, sulci and cisterns are age appropriate. The stern-white differentiation is intact. The visualized paranasal sinuses and mastoid air cells are clear. The surrounding soft tissues and osseous structures are unremarkable. IMPRESSION: 1. No acute intracranial abnormality. Radiation optimization: All CT scans at this facility use at least one of these dose optimization mary hniques: automated exposure control mA and/or kV adjustment per patient size (includes targeted exam s where dose is matched to clinical indication) or iterative reconstruction.
[2024-09-28 02:34] LABS: Alanine Aminotransferase 10 U/L (7-40); Albumin 3.6 g/dL (3.2-4.8); Alkaline Phosphatase 67 U/L (46-116); Anion Gap 7 (5-15); BUN/Creatinine Ratio 14.0 (10.0-20.0); Blood Urea Nitrogen 13 mg/dL (9-23); Calcium 8.4 mg/dL (8.7-10.4); Carbon Dioxide 25 mmol/L (20-31); Chloride 110 mmol/L (98-107); Glucose 109 mg/dL (74-106); Potassium 3.7 mmol/L (3.5-5.1); Sodium 142 mmol/L (136-145); Total Protein 5.8 g/dL (5.7-8.2)
[2024-09-28 02:35] LABS: Bilirubin, Total 0.2 mg/dL (0.2-1.0)
[2024-09-28] MEDS: ACETAMINOPHEN 325 MG TAB PO SCH (06:00)
[2024-09-28 08:36] VITALS: PULSE 71; RESP 21; O2SAT 99
[2024-09-28] MEDS: KETOROLAC TROMETH 30 MG/ML 1ML VIAL IV PRN (09:07)
[2024-09-28] MEDS: levETIRAcetam 500 MG TAB PO SCH (10:14)
[2024-09-28] MEDS ORDERED: [UNRECOGNIZED DRUG - CODE] PO (17:33)
--- NOTE | 2024-09-28 17:55 | DVHDSRES ---
Discharge Summary Date of Admission Resident Creating Document: LAURO CHOI RESDIENT Sep 27, 2024 at 23:52 Date of Discharge: Sep 28, 2024 Admitting Diagnosis Seizure disorder Labs/Diagnostic Data: Laboratory Results Test 09/28/24 11:11 09/28/24 02:08 09/28/24 01:18 09/28/24 01:17 POC Glucose 111 mg/dl (70-106) White Blood Count 6.3 10^3/uL (4.4-10.8) Red Blood Count 3.96 10^6/uL (4.0-5.20) Hemoglobin 11.6 g/dL (12.2-16.2) Hematocrit 34.3 % (36.0-46.0) Mean Corpuscular Volume 86.8 fL (80.0-100.0) Mean Corpuscular Hemoglobin 29.3 pg (28.0-32.0) Mean Corpuscular Hemoglobin Concent 33.8 g/dL (32.0-36.0) Red Cell Distribution Width 13.0 % (11.8-14.3) Platelet Count 198 10^3/uL (140-450) Mean Platelet Volume 7.5 fL (6.9-10.8) Neutrophils (%) (Auto) 68.0 % (37.0-80.0) Lymphocytes (%) (Auto) 25.0 % (10.0-50.0) Monocytes (%) (Auto) 5.7 % (0.0-12.0) Eosinophils (%) (Auto) 0.9 % (0.0-7.0) Basophils (%) (Auto) 0.4 % (0.0-2.0) Neutrophils # (Auto) 4.3 10 ^3/uL (1.6-8.6) Lymphocytes # (Auto) 1.6 10 ^3/uL (0.4-5.4) Monocytes # (Auto) 0.4 10 ^3/uL (0-1.3) Eosinophils # (Auto) 0.1 10 ^3/uL (0-0.8) Basophils # (Auto) 0 10 ^3/uL (0-0.2) Nucleated Red Blood Cells 0.1 % Sodium Level 142 mmol/L (136-145) Potassium Level 3.7 mmol/L (3.5-5.1) Chloride Level 110 mmol/L (98-107) Carbon Dioxide Level 25 mmol/L (20-31) Anion Gap 7 (5-15) Blood Urea Nitrogen 13 mg/dL (9-23) Creatinine 0.93 mg/dL (0.550-1.02) Glomerular Filtration Rate Calc 83 mL/min (>90) BUN/Creatinine Ratio 14.0 (10.0-20.0) Serum Glucose 109 mg/dL (74-106) Calcium Level 8.4 mg/dL (8.7-10.4) Total Bilirubin 0.2 mg/dL (0.2-1.0) Aspartate Amino Transferase (AST) 15 U/L (13-40) Alanine Aminotransferase (ALT) 10 U/L (7-40) Alkaline Phosphatase 67 U/L (46-116) Total Protein 5.8 g/dL (5.7-8.2) Albumin 3.6 g/dL (3.2-4.8) Urine Opiates Screen Neg (NEGATIVE) Urine Fentanyl Screen Neg (NEGATIVE) Urine Barbiturates Screen Neg (NEGATIVE) Urine Phencyclidine Screen Neg (NEGATIVE) Urine Amphetamines Screen Neg (NEGATIVE) Urine Benzodiazepines Screen Neg (NEGATIVE) Urine Cocaine Screen Neg (NEGATIVE) Urine Cannabinoids Screen Pos (NEGATIVE) Urine Color Yellow (Yellow) Urine Clarity Clear (Clear) Urine pH 6.0 (5.0-9.0) Urine Specific [place] 1.031 (1.001-1.035) Urine Protein Negative (Negative) Urine Ketones Negative (Negative) Urine Blood Negative /uL (Negative) Urine Nitrite Negative (Negative) Urine Bilirubin Negative (Negative) Urine Urobilinogen Normal mg/dL (Negative) Urine Leukocyte Esterase Negative /uL (Negative) Urine Glucose Normal mg/dL (Normal) Test 09/27/24 20:31 Prothrombin Time 10.3 sec (9.3-11.8) Prothrombin Time INR 0.97 (0.9-1.15) Magnesium Level 1.8 mg/dL (1.6-2.6) Thyroid Stimulating Hormone (TSH) 1.24 uIU/mL (0.55-4.78) Beta HCG, Quantitative 0.6 mIU/mL (1.5-4.2) Plasma/Serum Blood Alcohol < 3.0 mg/dL (<10) Other Laboratory Tests 09/28/24 02:08 Brief Hx & Hospital Course: Hospital Course: Ms. Foy, a 34-year-old female presents with a chief complaint of new onset of seizure after discontinuing all home antiseizure meds (lacosamide), which began approximately post midnight and has progressively preceded by severe headache with aura and prodrome. The patient experienced a sudden onset of illness characterized by shortness of breath, nausea, and loss of consciousness upon standing, which recurred upon arrival at the hospital. According to the ER note, the most recent episode was a witnessed seizure. She also reported blurry vision, headache, and urinary incontinence, but denied chest pain, fever, changes in bladder or bowel habits, or tongue biting. She attributed her symptoms to recent high stress and poor sleep. S/p IV antiseizure meds. Patient is not having further seizure, transport with family back home with medication refill and bedside counseling done. She preferred lacosamide over keppra. Labs unremarkable and hemodynamically stable overnight. Conditions treated in hospital #Seizure since childhood, previous seizure episode was 2 months back #H/o Ectopic #family history of seizure #marijuana use disorder #medication non adherence ran out of lacosamide oral #on OCP likely a P45o inducer #Likely primary headache, migraine with aura / complex migraine #Grade I obesity 34.9 #Refilled medication, DC clinic follow up #follow up with neurologist and PCP within a week #Seizure precautions and education provided with avoidance of high risk activities Physical Exam: General Appearance: Alert, Oriented X3, Cooperative, No acute distress HEENT: Atraumatic, PERRLA, EOMI, Mucous membrane moist/pink Respiratory: Clear to auscultation, Normal air movement Cardiovascular: Regular rate, Normal S1, Normal S2, No murmurs, no chest wall tenderness Abdominal: Normal bowel sounds, Soft, No tenderness, No hepatospenomegaly, No masses Extremities: No clubbing, No cyanosis, No edema, Normal pulses, No tenderness/swelling Skin: No rashes, No breakdown, No significant lesion Neuro: Grossly normal Psych/Mental Status: Mental status NL Discharge Plan: Oral Meds to continue PCP, Neurology and Discharge clinic follow up. Operations or Procedures [address] [address] Ph: [phone] DIAGNOSTIC IMAGING Diagnostic Imaging Report : [id number] Signed PATIENT: EDGAR FOY ACCT: [id number] UNIT: [id number] : 1990 LOC: OVERFLOW ROOM / BED: 1009-[facility] / A AGE / SEX: 34 / F ADM STATUS: ADM IN SERVICE ORDERING PHYSICIAN: LAURO CHOI RESDITONIA PROCEDURE(s): HWOCT - HEAD WITHOUT CONTRAST REASON: ALOC ORDER NUMBER(s): [id number], ACCESSION NUMBER(s): [id number] EXAM: CT HEAD WITHOUT CONTRAST INDICATION: ALOC TECHNIQUE: CT of the head without intravenous contrast. Radiation Dose : 1. Head: CT Dose: CTDI volume is 62.14 mGy. Dose-length product is 1224.51 mGy*cm The dose indicators for CT are the volume Computed Tomography (CT) Dose Index (CTDIvol) and the Dose Length Product (DLP), and are measured in units of mGy and mGy-cm, respectively. These indicators are not patient dose, but values generated from the CT scanner acquisition factors. The report includes radiation exposure data for exposures received during this examination. COMPARISON: None FINDINGS: There is no evidence of acute intracranial hemorrhage, extra-axial collection, mass effect, midline shift, herniation or hydrocephalus. The ventricles, sulci and cisterns are age appropriate. The stern-white differentiation is intact. The visualized paranasal sinuses and mastoid air cells are clear. The surrounding soft tissues and osseous structures are unremarkable. IMPRESSION: 1. No acute intracranial abnormality. Radiation optimization: All CT scans at this facility use at least one of these dose optimization techniques: automated exposure control mA and/or kV adjustment per patient size (includes targeted exams where dose is matched to clinical indication) or iterative reconstruction. ATED BY: CRICKET URENA MD DICTATED DATE/TIME: 09/28/24218 SIGNED BY: CRICKET URENA MD SIGNED DATE/TIME: 09/28/24218 CC: [place] [address] Ph: [phone] DIAGNOSTIC IMAGING Diagnostic Imaging Report : [id number] Signed PATIENT: EDGAR FOY ACCT: [id number] UNIT: [id number] : 1990 LOC: OVERFLOW ROOM / BED: 1009-[facility] / A AGE / SEX: 34 / F ADM STATUS: ADM IN SERVICE [id number] ORDERING PHYSICIAN: LAURO CHOI RESDITONIA PROCEDURE(s): CXR1 - CHEST XRAY 1 VIEW REASON: Pneumonia ORDER NUMBER(s): [id number], ACCESSION NUMBER(s): [id number] CHEST RADIOGRAPH Indication: Pneumonia Technique: Single frontal view of the chest was obtained COMPARISON: None FINDINGS: Lines and Tubes: None Lungs: Clear Pleura: No effusion. No pneumothorax. Cardiomediastinal contours: Unremarkable Bones: Unremarkable IMPRESSION: 1. No acute disease. ATED BY: CRICKET URENA MD DICTATED DATE/TIME: 09/28/24117 SIGNED BY: CRICKET URENA MD SIGNED DATE/TIME: 09/28/24117 CC: Condition at Discharge: Fair Final Diagnosis/Problems List Medication non compliance Seizure disorder, epilepsy Primary headache, likely migraine with aura Grade I obesity Discharge Disposition: Home Discharge Instruct/Medications Diet: Regular Activity: No Restrictions, As Tolerated Activity comment: Outdoor and Public Safety Precautions Water Safety: Never swim alone; always have a nadia system in place. Avoid deep water and use life jackets if necessary. 1 Driving: Follow local laws regarding driving with a seizure disorder; some regions require a seizure-free period before driving. 1 1 Source Additional Considerations Educate Others: Inform family, friends, and coworkers about seizure precautions and how to respond during a seizure. 1 Emergency Plan: Have a clear plan in place for what to do in case of a seizure, including who to contact and what steps to take. 1 By implementing these precautions, individuals with seizure disorders can significantly reduce the risk of injury and ensure a safer environment for themselves and those around them. Always consult with a healthcare professional for personalized advice and recommendations. Follow Up/Referral: Follow up with PCP in a week. Follow up with your Neurology Follow up with the [place] clinic Medications: as per EHR Please start taking home meds Scheduled Lacosamide (Motpoly Xr), 200 MG PO DAILY, (Reported) Lacosamide (Motpoly Xr), 200 MG PO DAILY, (Reported) Medroxyprogesterone Acetate (Provera), 1 TAB PO DAILY Discharge Statement: "Patient was advised to return to the ER or call 911 if any headaches, dizziness, shortness of breath, chest pain, abdominal pain, bleeding, fevers, or worsening of medical condition. Patient was counseled about treatment plan, medications, possible side effects, patientverbalized understanding. All questions were answered to the best of my ability. This discharge took greater then 30 minutes in planning, reviewing documentation, counseling the patient, and discussing with other team members." ASSESSMENT ASSESSMENT Assessment Medication non compliance Seizure disorder, epilepsy Primary headache, likely migraine with aura Grade I obesity NARGIS HEATH RESIDENT Sep 28, 2024 17:55
[2024-09-28 18:48] VITALS: PULSE 67; RESP 16; O2SAT 98
[2024-09-28 20:00] VITALS: PULSE 90
[2024-09-29 01:00] VITALS: BP 115/65; PULSE 60; RESP 15; TEMP 98.1; O2SAT 100
[2024-09-29 05:00] VITALS: BP 118/81; PULSE 78; RESP 15; TEMP 97.6; O2SAT 93
[2024-09-29 05:26] VITALS: BP 139/94; PULSE 65; RESP 15; TEMP 98.7; O2SAT 100
[2024-09-29] MEDS ORDERED: LEVE100012 PO (08:14)
--- NOTE | 2024-09-29 08:20 | DVHPNRES ---
Progress Note Date Seen: Sep 29, 2024 Resident Creating Document: NARGIS HEATH RESIDENT Has the PT tested + for MRSA If YES, has PT been informed?: No Medical Necessity Reason Pt with a Central, PICC or Fol: No Subjective Patient reports: No new complaints, Feels better Changes from previous H/P or p: No Changes Objective vital signs Vital Sign Date Time Temp Pulse Resp B/P (MAP) Pulse Ox O2 Delivery O2 Flow Rate FiO2 09/29/24 05:26 98.7 65 15 139/94 (109) 100 98.7 09/28/24 20:00 Room Air* 0 21 Total Intake and Output 09/28/24 09/28/24 09/29/24 15:00 23:00 07:00 Intake Total 300 ml Balance 300 ml medications Current Medications Medications Dose Ordered Sig/Sherrill Route Start Time Stop Time Status Last Admin Dose Admin Lorazepam 1 mg Q5MINP PRN IV 09/28/24 00:15 Ondansetron HCl 4 mg Q4HPRN PRN IV 09/28/24 00:15 Acetaminophen 650 mg Q6HR PO 09/28/24 06:00 09/29/24 00:00 650 MG Ketorolac Tromethamine 15 mg Q6HPRN PRN IV 09/28/24 00:15 10/03/24 00:14 09/29/24 05:51 15 MG Levetiracetam 1,000 mg BID PO 09/28/24 10:00 09/28/24 21:12 1,000 MG Examination General Appearance: Alert, Oriented X3, Cooperative, No acute distress HEENT: Atraumatic, PERRLA, EOMI, Mucous membrane moist/pink Respiratory: Clear to auscultation, Normal air movement Cardiovascular: Regular rate, Normal S1, Normal S2, No murmurs, no chest wall tenderness Abdominal: Normal bowel sounds, Soft, No tenderness, No hepatospenomegaly, No masses Extremities: No clubbing, No cyanosis, No edema, Normal pulses, No tenderness/swelling Skin: No rashes, No breakdown, No significant lesion Neuro: Grossly normal Psych/Mental Status: Mental status NL laboratory and microbiology Laboratory Tests 09/28/24 02:08 Test 09/28/24 02:08 Range/Units Serum Glucose 109 H 74-106 mg/dL Labs and/or images reviewed: Labs reviewed by me, Image(s) reviewed by me Problem List/Assessment/Plan Problem List/Assessment/Plan Hospital Course: Ms. Foy, a 34-year-old female presents with a chief complaint of new onset of seizure after discontinuing all home antiseizure meds (lacosamide), which began approximately post midnight and has progressively preceded by severe headache with aura and prodrome. The patient experienced a sudden onset of illness characterized by shortness of breath, nausea, and loss of consciousness upon standing, which recurred upon arrival at the hospital. According to the ER note, the most recent episode was a witnessed seizure. She also reported blurry vision, headache, and urinary incontinence, but denied chest pain, fever, changes in bladder or bowel habits, or tongue biting. She attributed her symptoms to recent high stress and poor sleep. S/p IV antiseizure meds. Patient is not having further seizure, transport with family back home with medication refill and bedside counseling done. She preferred lacosamide over keppra. Labs unremarkable and hemodynamically stable overnight. Conditions treated in hospital #Seizure since childhood, previous seizure episode was 2 months back #H/o Ectopic #family history of seizure #marijuana use disorder #medication non adherence ran out of lacosamide oral #on OCP likely a P45o inducer #Likely primary headache, migraine with aura / complex migraine #Grade I obesity 34.9 #Refilled medication, DC clinic follow up #follow up with neurologist and PCP within a week #Seizure precautions and education provided with avoidance of high risk activities Discharge Plan: Oral Meds to continue PCP, Neurology and Discharge clinic follow up. Patient initially opted for oral Keppra over Lacosamide for refill outpatient at discharge till she follows with the PCP and neurology, and counseling was provided accordingly. Medications were sent to the hospital outpatient pharmacy for bedside delivery prior to discharge on PM of 09/28. Later, the patient changed her mind and requested to change the medication at the time of discharge and she decided not to leave hospital. As per night team the patient wants keppra to be sent as outpatient. I personally counseled her with the RN and sent the updated prescription. The patient appeared upset and demonstrated limited understanding of her medication regimen. I clarified that Keppra was administered yesterday and in hospital and Lacosamide, a once-daily medication, was scheduled to start from today as outpatient. The patient refused to discuss further and left hospital. Patient is now agreeable to discharge, with transport arranged by family. As per her wish i changed her Keppra to Lacosamide 200mg xr daily. Goals of care and care plan with discharge planning consists of 37 minutes of detailed clinical work. Discussed with Dr. Castillo. Plan discussed with: Patient My Orders My Orders Orders - NARGIS HEATH RESIDENT Procedure Category Date Status Time Schedule For Dc LUNA 09/28/24 In Process Clinic F/U 17:55 Discharge DISCHARGE 09/29/24 Verified 08:13 NARGIS HEATH RESIDENT Sep 29, 2024 08:20
[2024-09-29 08:42] VITALS: BP 106/70; PULSE 64; RESP 18; TEMP 98; O2SAT 96
[2024-09-29 13:00] VITALS: BP 118/88; PULSE 61; RESP 18; TEMP 97.9; O2SAT 99
[2024-09-29] MEDS ORDERED: [UNRECOGNIZED DRUG - CODE] PO (15:38)
[2024-09-29] MEDS ORDERED: levETIRAcetam 500 MG TAB PO SCH (18:00)
[2024-09-30] MEDS ORDERED: LACO100T3 PO (13:35)
== END 2024-09-29 13:58 | disposition home or self-care (01) | DRG 54 ==
LOC: ER 20:10 → OVERFLOW 23:52 → TELE-EAST 09-28 17:51
PROVIDERS: ADMIT Student in an Organized Health Care Education/Training Program; ATTEND Student in an Organized Health Care Education/Training Program
DX: G43.109 Migraine with aura, not intractable, without status migrainosus (principal); E66.811 Obesity, class 1; G40.909 Epilepsy, unspecified, not intractable, without status epilepticus; F19.90 Other psychoactive substance use, unspecified, uncomplicated; Z91.148 Patient's other noncompliance with medication regimen for other reason; Z82.0 Family history of epilepsy and other diseases of the nervous system; Z79.899 Other long term (current) drug therapy; Z68.41 Body mass index [BMI] 40.0-44.9, adult
CPT/HCPCS: 36415; 70450; 71045; 80053; 80307; 80320; 81003; 82542; 82962; 83735; 84443; 84702; 85025; 85610; 96361; 96365; G0378; J1885